=== PATIENT | female | born 1950 | race Caucasian/White ===

== ENCOUNTER → 2020-10-16 | Day surgery (SDC) | payer OTHER ==
[~2020-10-16] VITALS: Ht 165.1 cm; Wt 86.4 kg
[~2020-10-16] MED LIST: ASCORBIC ACID500 MG PO; ATORVASTATIN CA10 MG PO; FLUTICASONE PRO16 GM; LISINOPRIL40 MG PO; OMEPRAZOLE 20MG20 MG PO; OS-CAL500 MG PO; VITAMIN B122500 MC1 PO; VITAMIN D21250 MCG PO
[2020-10-16 08:23] LABS: HCT 48.3 % (37.0-47.0); MCH 32.2 pg (25.0-31.0); MCHC 33.1 g/dL (32.0-36.0); MCV 97.2 fL (78.0-100.0); MPV 10.4 fL (6.0-9.5); RBC 4.97 M/uL (4.20-5.40); RDW 12.1 % (11.5-14.0); WBC 6.6 K/uL (4.0-10.5)
[2020-10-16 08:39] LABS: ALBUMIN 4.3 g/dL (3.4-5.0); BILIRUBIN - TOTAL 0.6 mg/dL (0.2-1.0); BUN/CREAT RATIO (CALC) 15.9 RATIO; CREATININE 0.88 mg/dL (0.51-0.95); POTASSIUM 3.9 mmol/L (3.5-5.1); TOTAL PROTEIN 8.3 g/dL (6.4-8.2)
== END | disposition home or self-care (01) ==
LOC: FAS 07:31
PROVIDERS: Surgery
DX: Z12.11 Encounter for screening for malignant neoplasm of colon (principal); K63.5 Polyp of colon; K21.9 Gastro-esophageal reflux disease without esophagitis; I10 Essential (primary) hypertension; M85.80 Other specified disorders of bone density and structure, unspecified site; E78.00 Pure hypercholesterolemia, unspecified; Z91.040 Latex allergy status; Z86.010 Personal history of colon polyps; Z91.013 Allergy to seafood; Z86.16 Personal history of COVID-19; Z79.899 Other long term (current) drug therapy; Z90.49 Acquired absence of other specified parts of digestive tract; Z98.890 Other specified postprocedural states; Z98.51 Tubal ligation status; Z82.49 Family history of ischemic heart disease and other diseases of the circulatory system
CPT/HCPCS: 36415; 80053; 88305; J2250; J2704; J7120